=== PATIENT | female | born 1990 | race Two or more races ===

== ENCOUNTER 2020-01-07 17:37 | Emergency (ER) | payer OTHER, SELFPAY ==
[2020-01-07 17:51] VITALS: BP 127/62; PULSE 80; RESP 16; TEMP 37.4; O2SAT 99
--- NOTE | 2020-01-07 17:55 | ED.DENTAL ---
HPI - Dental/Oral General Chief complaint: Dental/Oral Stated complaint: right mouth pain Time Seen by Provider: 01/07/20 17:59 Source: patient and RN notes reviewed Mode of arrival: ambulatory Limitations: no limitations History of Present Illness HPI Narrative: This is a 29 years old female presents to the office for an evaluation of right cheek pain for a few day. Pain is getting worse especially when she tries to open her mouth to brush her teeth. Denies any pain for teeth when she eating or chewing or dental sensitivity to ice or hot drink. Denies facial trauma or injury. Denies sick contact. She has been taking ibuprofen for pain. Related Data Home Medications Medication Instructions Recorded Confirmed Controll 07/13/19 albuterol sulfate 07/13/19 Allergies Allergy/AdvReac Type Severity Reaction Status Date / Time No Known Allergies Allergy Verified 12/20/18 16:12 Review of Systems Review of Systems: Narrative: CONSTITUTIONAL: Denies fever or feeling ill. ENT: Denies rhinorrhea, congestion, sore throat, ear pain dental pain or drooling CARDIOVASCULAR: Denies chest pain RESPIRATORY: Denies cough GASTROINTESTINAL: Denies nausea, vomiting SKIN: Denies rash MUSCULOSKELETAL: Denies acute back pain NEUROLOGIC: Denies lightheaded PMFSH Past Medical History Medical History (Updated 01/07/20 @ 18:12 by KAYLYN Rick) Asthma Surgical History Surgical History (Updated 01/07/20 @ 17:57 by KAYLYN Rick) H/O section Hx of tonsillectomy Comments At time of signature, I agree with nursing past medical, surgical, social and family history. There is no relevant family history pertinent to the presenting complaint. Exam Narrative: Exam Narrative: GENERAL: This is a well-nourished, well-developed patient, in no apparent distress. Right side facial appears swollen without obvious erythema or lymphandenitis. EARS: External ears normal, auditory canals clear and without drainage, TMs normal without perforation. Hearing grossly intact. NOSE: External nose normal with no obvious nasal discharge, nares without redness, no rhinorrhea. THROAT: Mucous membranes moist, posterior pharynx clear; no obvious lesions. NECK: Neck supple, non-tender without lymphadenopathy, masses or thyromegaly. CARDIOVASCULAR: Regular rate and rhythm without murmurs, gallops, or rubs. RESPIRATORY: Clear to auscultation. Breath sounds equal bilaterally. No wheezes, rales, or rhonchi. GASTROINTESTINAL: Abdomen soft, non-tender, nondistended. Bowel sounds are active. No guarding. NEURO: awake, alert, and oriented to person, place and time. There were no obvious focal neurologic abnormalities. Steady gait Veronica Coma Scale Eye Opening: Spontaneous 4 [place] Coma Scale Motor: Obeys Commands 6 Veronica Coma Scale Verbal: Oriented 5 Course Vital Signs Vital signs: Vital Signs Temperature 99.4 F 01/07/20 17:51 Pulse Rate 80 01/07/20 17:51 Respiratory Rate 16 01/07/20 17:51 Blood Pressure 127/62 01/07/20 17:51 Pulse Oximetry 99 01/07/20 17:51 Temperature 99.4 F 01/07/20 17:51 Pulse Rate 80 01/07/20 17:51 Respiratory Rate 16 01/07/20 17:51 Blood Pressure 127/62 01/07/20 17:51 Pulse Oximetry 99 01/07/20 17:51 MDM - Dental/Oral MDM Narrative Medical decision making narrative: Discharge instructions reviewed with patient, as well as provided in writing per nursing staff. The instructions also include specific and strict return/GO TO THE ER as well as f/u information. All questions have been answered, and the patient deny any further questions with discharge and discharge plan. Differential Diagnosis Differential diagnosis: Likely gingival abscess, dental caries, toothache, dental abscess, aphthous ulcer and other (siadenitis, lymphadenapthy) Medical Records Attestation: I reviewed the patient's medical records. Critical Care Time Critical Care Time Critical
== END 2020-01-07 18:15 | disposition home or self-care (01) ==
PROVIDERS: Emergency Provider Nurse Practitioner; PCP Physician Assistant
DX: K13.79 Other lesions of oral mucosa (principal); J45.909 Unspecified asthma, uncomplicated
CPT/HCPCS: 99211; G0463

== ENCOUNTER 2021-06-08 08:56 | Emergency (ER) | payer OTHER, SELFPAY ==
[2021-06-08 09:09] VITALS: BP 110/68; PULSE 97; RESP 16; TEMP 36.4; O2SAT 100
--- NOTE | 2021-06-08 09:23 | ED.BACK ---
HPI - Back Pain/Injury General Chief Complaint: Back Pain/Injury Stated Complaint: Lower back pain Source: patient and RN notes reviewed Limitations: no limitations History of Present Illness HPI Narrative: The overweight patient, who works sitting in a call center, presents with right low back pain. Patient states she has had a recurrence of first right, now mostly left low back pain that is mild, worse with motion, better at rest, unrelieved with Flexeril she had previously [and she is run out of it]. No injury, fever, mild?bladder symptoms, hematuria/frequency/urgency/dysuria, significant ra radiating pain [tho it does go down posterior right thigh well above knee]. Related Data Home Medications Medication Instructions Recorded Confirmed fluticasone propion-salmeterol 1 inh INHALATION Q12H 06/08/21 06/08/21 [Advair Diskus] norethindrone-e.estradiol-iron 1 tablet PO DAILY 06/08/21 06/08/21 [Emily 24 Fe] Allergies Allergy/AdvReac Type Severity Reaction Status Date / Time No Known Allergies Allergy Verified 06/08/21 09:15 Review of Systems Review of Systems: General/Constitutional: No weight loss,fever Eyes: N0: Redness,discharge Ears/Nose/Throat: No: Epistaxis,ear discharge Respiratory: Denies: Hemoptysis Gastrointestinal: No Vomiting, Bleeding-rectal Skin: No Lumps, eruption Neurologic: No Focal Weakness,Sz Hematologic: Denies: Petechiae/Purpura Psychiatric: No: Suicida ideationl All Other Systems: Reviewed and Negative PMFSH Past Medical History Medical History (Updated 06/08/21 @ 10:39 by Don Davis MD) Asthma Surgical History Surgical History (Updated 01/07/20 @ 17:57 by KAYLYN Rick) H/O section Hx of tonsillectomy Comments At time of signature, agree with nursing past medical, surgical, social and family history. There is no relevant family history pertinent to the presenting complaint Exam Narrative: General Appearance: Overweight/well nourished Mouth/Throat: Normal appearing, Normal lips,: Supple Respiratory: Airway patent Abdomen: Soft Musculoskeletal: Normal strength (no footdrop, 5/5 : EH L-FHL, gastroc-AT, no saddle weakness) Spine/Back: Paraspinal muscle tender (with mild decreased range of motion; @ right posterior superior iliac crest) Skin: Normal color Neurological: A&O x3, CN II-XII intact, Normal reflexes (symmetric, 2+ KJ, trace AJ) Psychiatric: Normal mood Course Vital Signs Vital signs: Vital Signs Temperature 97.6 F 06/08/21 09:09 Pulse Rate 97 06/08/21 09:09 Respiratory Rate 16 06/08/21 09:09 Blood Pressure 110/68 06/08/21 09:09 Pulse Oximetry 100 06/08/21 09:09 Temperature 97.6 F 06/08/21 09:09 Pulse Rate 97 06/08/21 09:09 Respiratory Rate 16 06/08/21 09:09 Blood Pressure 110/68 06/08/21 09:09 Pulse Oximetry 100 06/08/21 09:09 Discharge Plan Discharge Clinical Impression: Back pain Qualifiers: Back pain location: low back pain Chronicity: acute Back pain laterality: right Sciatica presence: without sciatica Qualified Code(s): M54.5 - Low back pain Patient Disposition: Home, Self-Care Condition: Stable Instructions: Lower Back Exercises (ED) Prescriptions: New prednisone 20 mg tablet 60 mg PO DAILY Qty: 15 RF: 0 cyclobenzaprine 10 mg tablet 10 mg PO HS PRN (Reason: muscle spasm) Qty: 20 RF: 2 tramadol 50 mg tablet 50 - 75 mg PO TID PRN (Reason: pain) Qty: 20 RF: 0 tramadol 50 mg tablet 50 - 75 mg PO TID PRN (Reason: pain) Qty: 25 RF: 0 No Action norethindrone-e.estradiol-iron [Emily 24 Fe] 1 mg-20 mcg (24)/75 mg (4) tablet 1 tablet PO DAILY RF: 0 fluticasone propion-salmeterol [Advair Diskus] 250-50 mcg/dose Blister With Device 1 inh INHALATION Q12H RF: 0 Follow-up/Referrals: Ambrosio,GEOFFREY Lemus [Primary Care Provider] - Stand Alone Forms: Work/School Release IP
== END 2021-06-08 09:39 | disposition home or self-care (01) ==
PROVIDERS: Emergency Provider Emergency Medicine; PCP Physician Assistant
DX: M54.5 Low back pain (principal); J45.909 Unspecified asthma, uncomplicated
CPT/HCPCS: 99213; G0463

== ENCOUNTER 2021-09-01 18:22 | Emergency (ER) | payer OTHER, MEDICAID, SELFPAY ==
[2021-09-01 18:42] VITALS: BP 126/62; PULSE 74; RESP 16; TEMP 37.1; O2SAT 100
--- NOTE | 2021-09-01 19:10 | ED.GENADULT ---
HPI - General Adult General Chief complaint: Upper Respiratory Infection Stated complaint: sob/cough/mucus/runny nose/stuffy Source: patient Mode of arrival: ambulatory Limitations: no limitations History of Present Illness HPI narrative: Patient is a 30-year-old female who presents to the [facility] via POV for evaluation of upper respiratory symptoms that have been present for 2 days. Additionally, she reports nasal congestion, rhinorrhea, itchy throat, productive cough, wheezing. She reports her sputum production is small in quantity and brown in color. Singulair, vitamin C, and vitamin D provides no relief. Nothing improves or worsen symptoms. Patient has a history of pneumonia. Last episode of pneumonia was 1 year ago. She denies known exposure to sick contacts. She is fully vaccinated against Covid although not pneumonia. Related Data Home Medications Medication Instructions Recorded Confirmed norethindrone-e.estradiol-iron 1 tablet PO DAILY 06/08/21 09/01/21 [Emily 24 Fe] Allergies Allergy/AdvReac Type Severity Reaction Status Date / Time No Known Allergies Allergy Verified 09/01/21 19:04 Review of Systems Review of Systems: Pertinent negatives: fever, sweats, chills, change in appetite, fatigue, skin color changes, headache, dizziness, lymphadenopathy, sinus problems, ear pain/drainage, chest pain, heart murmurs, heart palpitations, shortness of breath, cyanosis, hemoptysis, hoarseness, orthopnea, pleuritic pain, nausea, vomiting, diarrhea, and myalgias. PMFSH Past Medical History Medical History (Updated 09/01/21 @ 19:36 by KAYLYN Villatoro, ) Asthma Pneumonia Surgical History Surgical History H/O section Hx of tonsillectomy Comments I have reviewed and agree with the patient's past medical, surgical, social, and family hx as documented by the RN. There is no relevant family history pertinent to the presenting complaint. Exam Narrative: GENERAL: Well-appearing, well-nourished, and in no acute distress. HEAD: Normocephalic, atraumatic. No sinus tenderness or facial swelling appreciated. EYES: PERRLA and EOMI. No evidence of erythema, swelling, or drainage. ENT: Bilateral external ears and ear canals normal. Bilateral TMs are normal. No TM perforation. Nares clear, no rhinorrhea or epistaxis. Bilateral turbinates without erythema/ swelling. Mucous membranes moist and pink. Uvula is midline without erythema and swelling. No evidence of petechial rash, cobblestoning, lesions, ulcers, erythema, swelling, exudates, peritonsillar abscess, tenting, or drooling. Breath odor and voice normal. NECK: Supple. No Lymphadenopathy or nuchal rigidity appreciated. CHEST: Moderate wheezing and rhonchi throughout bilateral posterior lung oliveira. What no respiratory distress. No evidence of pleuritic cp upon examination. Moderate wet cough appreciated on examination. HEART: Regular rate and rhythm. No murmur, gallop, or rub heard. EXTREMITIES: Normal range of motion. No edema. SKIN: Warm, dry, no rash. NEURO: No focal deficits. Alert and oriented x3. Course Vital Signs Vital signs: Vital Signs Temperature 98.8 F 09/01/21 18:42 Pulse Rate 74 09/01/21 18:42 Respiratory Rate 16 09/01/21 18:42 Blood Pressure 126/62 09/01/21 18:42 Pulse Oximetry 100 09/01/21 18:42 Temperature 98.8 F 09/01/21 18:42 Pulse Rate 74 09/01/21 18:42 Respiratory Rate 16 09/01/21 18:42 Blood Pressure 126/62 09/01/21 18:42 Pulse Oximetry 100 09/01/21 18:42 Medical Decision Making Differential Diagnosis Differential Diagnosis: Allergic rhinitis, ABRS, acute viral sinusitis, strep pharyngitis, nasopharyngitis, bronchitis, pneumonia, AOM, otitis externa, viral URI, influenza, covid-19 Medical Records Medical records reviewed: Yes I reviewed the external patient's medical records. Vital Signs Vital Signs:
== END 2021-09-01 19:37 | disposition home or self-care (01) ==
PROVIDERS: Emergency Provider Nurse Practitioner Family; PCP Physician Assistant
DX: R05.9 Cough, unspecified (principal); J45.909 Unspecified asthma, uncomplicated
CPT/HCPCS: 99213; G0463

== ENCOUNTER 2022-01-27 19:24 | Emergency (ER) | payer OTHER, MEDICAID, SELFPAY ==
[2022-01-27 19:30] VITALS: BP 130/63; PULSE 95; RESP 18; TEMP 37.2; O2SAT 98
--- NOTE | 2022-01-27 19:57 | ED.BACK ---
HPI - Back Pain/Injury General Chief Complaint: Back Pain/Injury Stated Complaint: hip/back pain Time Seen by Provider: 01/27/22 19:45 Source: patient Mode of arrival: ambulatory Limitations: no limitations History of Present Illness HPI Narrative: 31-year-old female presented for complaint of left hip and low back pain worsening over the past 3 days. She endorses a history of sciatica and states it feels similar with additional low back pain. Denies known injury. She has been taking cyclobenzaprine at night but is requesting something for during the day. She also endorses a history of asthma and has been wheezing more lately and resting refill on her albuterol inhaler. Denies numbness, tingling, weakness, loss of bowel or bladder, or saddle paresthesia. Related Data Home Medications Medication Instructions Recorded Confirmed norethindrone-e.estradiol-iron 1 tablet PO DAILY 06/08/21 09/01/21 [Emily 24 Fe] Allergies Allergy/AdvReac Type Severity Reaction Status Date / Time No Known Allergies Allergy Verified 09/01/21 19:04 Review of Systems Review of Systems: CONSTITUTIONAL: Denies body aches, fever, chills EYES: Denies visual changes ENT: Denies rhinorrhea, congestion CARDIOVASCULAR: Denies chest pain, palpitations, or edema. RESPIRATORY: Denies cough or dyspnea. GASTROINTESTINAL: Denies abdominal pain, nausea, vomiting, or diarrhea. SKIN: Denies rash, itching, or wounds. MUSCULOSKELETAL: Reports back pain and left hip pain. NEUROLOGIC: Denies headache, numbness, tingling, or weakness. PSYCH: Denies depression or anxiety. All systems reviewed & are unremarkable except as noted in HPI and below PMFSH Past Medical History Medical History (Updated 01/27/22 @ 19:58 by Carrol Lacy APRN) Asthma Pneumonia Surgical History Surgical History H/O section Hx of tonsillectomy Comments At time of signature, I have reviewed and agree with nursing past medical, surgical, social and family history unless otherwise noted. Please see nursing chart for further information. There is no relevant family history pertinent to the presenting complaint Exam Narrative: GENERAL: Appears in pain, no acute distress. HEAD: Normocephalic, atraumatic. EYES: conjunctivae clear NECK: Supple. CHEST: Speaks in full sentences. No respiratory distress. HEART: Regular rate and rhythm. Normal and equal peripheral pulses. EXTREMITIES: Bilateral lower extremities has normal strength and sensation, normal range of motion. Left hip/left lower back nontender with palpation no bruising or lesions; pulses palpable and equal bilaterally, skin warm, dry, pink. Capillary refill less than 3 seconds. SKIN: Warm, dry, no rash. NEURO: Alert and oriented x3. PSYCH: Normal mood and affect Course Course Emergency Course: Patient is aware of diagnosis, understands and agrees to treatment plan. Anticipatory guidance given. Patient agrees to follow-up as directed and is aware of reasons to seek care at the emergency department. Portions of this record may have been created with voice recognition software Level of Care: Express Care Visit Vital Signs Vital signs: Vital Signs Temperature 98.9 F 01/27/22 19:30 Pulse Rate 95 01/27/22 19:30 Respiratory Rate 18 01/27/22 19:30 Blood Pressure 130/63 01/27/22 19:30 Pulse Oximetry 98 01/27/22 19:30 Temperature 98.9 F 01/27/22 19:30 Pulse Rate 95 01/27/22 19:30 Respiratory Rate 18 01/27/22 19:30 Blood Pressure 130/63 01/27/22 19:30 Pulse Oximetry 98 01/27/22 19:30 Reviewed MDM - Back Pain/Injury Differential Diagnosis Differential diagnosis: Likely lumbar radiculopathy, sciatica and strain of lumbar region Discharge Plan Discharge Clinical Impression: Lumbar radiculopathy Patient Disposition: Home, Self-Care Condition: Stable Instructions: Antibiotic Form, Sciatica (ED),
== END 2022-01-27 20:03 | disposition home or self-care (01) ==
PROVIDERS: Emergency Provider Nurse Practitioner Family; PCP Physician Assistant
DX: M54.16 Radiculopathy, lumbar region (principal); J45.909 Unspecified asthma, uncomplicated
CPT/HCPCS: 99213; G0463

== ENCOUNTER 2022-06-29 10:37 | Emergency (ER) | payer OTHER, MEDICAID, SELFPAY ==
[2022-06-29 10:56] VITALS: BP 107/92; PULSE 97; RESP 18; TEMP 36.4; O2SAT 97
--- NOTE | 2022-06-29 11:51 | ED.URI ---
HPI - URI/Sore Throat General Chief Complaint: Upper Respiratory Infection Stated Complaint: uri Time Seen by Provider: 06/29/22 11:40 Source: patient, RN notes reviewed and old records reviewed Mode of arrival: ambulatory Limitations: no limitations History of Present Illness HPI Narrative: 31-year-old female who presents to [facility] with complaints of 2-day history of increased wheezing with some shortness of breath, has been using her nebulizer and her Ventolin denies any fevers chills or sweats or any body aches. Patient admits to some sinus congestion and drainage has not been taking any daily antihistamines. Patient states she was on Singulair about a month ago but has not had any for about a month. Patient states she did use her nebulizer last night and did use her inhaler this morning. Patient states she did cough up some yellowish looking mucus once this morning. Patient reports that she has had COVID vaccinations but no flu shot. MD elicited complaint: cough and sore throat Pertinent past history: asthma Onset (ago): day(s) (2) Treatments prior to arrival: other (inhalers and nebs) Related Data Home Medications Medication Instructions Recorded Confirmed albuterol sulfate 2.5 mg/3 mL 2.5 mg inhalation Q4H PRN sob 06/29/22 06/29/22 (0.083 %) solution for nebulization albuterol sulfate 90 mcg/actuation 2 puff inhalation QID PRN sob 06/29/22 06/29/22 aerosol inhaler (Ventolin HFA) fluticasone 500 mcg-salmeterol 50 2 inh inhalation DAILY 06/29/22 06/29/22 mcg/dose blistr powdr for inhalation (Advair Diskus) Allergies Allergy/AdvReac Type Severity Reaction Status Date / Time No Known Allergies Allergy Verified 06/29/22 11:11 Review of Systems Review of Systems: CONSTITUTIONAL: Denies malaise, chills, sweats, or fever. EYES: Denies visual changes, redness, or discharge. ENT: Reports rhinorrhea, congestion,no sinus pain, otalgia or sore throat. CARDIOVASCULAR: Denies chest pain, palpitations, or edema. RESPIRATORY: Reports cough.? Denies dyspnea.reports wheezing GASTROINTESTINAL: Denies abdominal pain, nausea, vomiting, diarrhea SKIN: Denies rash or itching. MUSCULOSKELETAL: Denies myalgia. NEUROLOGIC: Denies headache. All systems reviewed & are unremarkable except as noted in HPI and below PMFSH Past Medical History Medical History (Updated 07/01/22 @ 07:22 by Laisha Cortez NP) Asthma Bronchitis Pneumonia Surgical History Surgical History (Updated 07/01/22 @ 07:22 by Laisha Cortez NP) H/O section History of placement of ear tubes Hx of tonsillectomy Social History Social History (Updated 07/01/22 @ 07:21 by Laisha Cortez NP) Smoking status: Never smoker Alcohol intake: current Alcohol use details: social Substance use type: does not use Living arrangements: with family Gender identity (if verbalized by the patient): Female Comments At time of signature, agree with nursing past medical, surgical, social and family history. There is no relevant family history pertinent to the presenting complaint Exam Narrative: GENERAL: Well-appearing, well-nourished, and in no acute distress. HEAD: Normocephalic EYES: PERRLA, conjunctivae clear ENT: Nares clear, turbinates edematous and erythematous, clear discharge. Mucous membranes moist. TM pearly ricks with dull light reflex bilaterally; no tragal tenderness. Oropharynx pink without lesions. Tonsils not present and without exudate, no drooling, no hoarseness, no trismus, uvula midline. NECK: Supple. No lymphadenopathy CHEST Scattered wheezes in upper lobes, breath sounds equal. No , rhonchi, rales, or stridor. No respiratory distress, speaks in full sentences.cough with SAO2 97% on room air HEART: Regular rate and rhythm. No murmur heard. SKIN: Warm, dry, no rash. NEURO: Alert and oriented x3. PSYCH: Normal mood and affect Course Course Emergency Course: Patient is
== END 2022-06-29 12:12 | disposition home or self-care (01) ==
PROVIDERS: Emergency Provider Registered Nurse; PCP Physician Assistant
DX: J45.901 Unspecified asthma with (acute) exacerbation (principal)
CPT/HCPCS: 99213; G0463

== ENCOUNTER 2022-10-24 13:23 | Emergency (ER) | payer MEDICAID, SELFPAY ==
--- NOTE | 2022-10-24 13:29 | ED.URI ---
HPI - URI/Sore Throat General Chief Complaint: Upper Respiratory Infection Stated Complaint: sob/wheezing Time Seen by Provider: 10/24/22 13:46 Source: patient and RN notes reviewed Mode of arrival: ambulatory Limitations: no limitations History of Present Illness HPI Narrative: 31-year-old female presents with concern for asthma exacerbation. She reports 1 week history of increased productive cough, wheezing. She reports she has been using her rescue inhaler approximately 10 times daily. She denies nasal congestion, rhinorrhea, fever, aches, chills, sweats. MD elicited complaint: cough Related Data Home Medications Medication Instructions Recorded Confirmed albuterol sulfate 2.5 mg/3 mL 2.5 mg inhalation Q4H PRN sob 06/29/22 10/24/22 (0.083 %) solution for nebulization albuterol sulfate 90 mcg/actuation 2 puff inhalation QID PRN sob 06/29/22 10/24/22 aerosol inhaler (Ventolin HFA) fluticasone 500 mcg-salmeterol 50 2 inh inhalation DAILY 06/29/22 10/24/22 mcg/dose blistr powdr for inhalation (Advair Diskus) montelukast 10 mg tablet 10 mg PO DAILY 10/24/22 10/24/22 norethindrone 1 mg-ethinyl 1 tablet PO DAILY 10/24/22 10/24/22 estradiol 20 mcg (24)-iron 75 mg (4) tablet (Emily 24 Fe) Allergies Allergy/AdvReac Type Severity Reaction Status Date / Time No Known Allergies Allergy Verified 10/24/22 13:33 Review of Systems Review of Systems: CONSTITUTIONAL: Denies malaise, chills, sweats, or fever. EYES: Denies visual changes, redness, or discharge. ENT: Denies rhinorrhea, congestion, sinus pain, otalgia and sore throat. CARDIOVASCULAR: Denies chest pain, palpitations, or edema. RESPIRATORY: Reports cough, wheezing, dyspnea. GASTROINTESTINAL: Denies abdominal pain, nausea, vomiting, diarrhea SKIN: Denies rash or itching. MUSCULOSKELETAL: Denies myalgia. NEUROLOGIC: Denies headache. All systems reviewed & are unremarkable except as noted in HPI and below PMFSH Past Medical History Medical History (Updated 10/24/22 @ 14:15 by Christel Mahajan NP) Asthma Bronchitis Pneumonia Surgical History Surgical History (Updated 07/01/22 @ 07:22 by Laisha Cortez NP) H/O section History of placement of ear tubes Hx of tonsillectomy Social History Social History (Updated 07/01/22 @ 07:21 by Laisha Cortez NP) Smoking status: Never smoker Alcohol intake: current Alcohol use details: social Substance use type: does not use Living arrangements: with family Gender identity (if verbalized by the patient): Female Comments At time of signature, agree with nursing past medical, surgical, social and family history. There is no relevant family history pertinent to the presenting complaint Exam Narrative: GENERAL: Well-appearing, well-nourished, and in no acute distress. HEAD: Normocephalic EYES: PERRLA, conjunctivae clear ENT: Nares clear. Mucous membranes moist. TM pearly ricks with sharp light reflex bilaterally; no tragal tenderness. Oropharynx not erythematous without lesions. Tonsils not enlarged and without exudate, no drooling, no hoarseness, no trismus, uvula midline. NECK: Supple. No lymphadenopathy CHEST: Scattered wheeze, otherwise Clear to auscultation, breath sounds equal. No rhonchi, rales, or stridor. No respiratory distress, speaks in full sentences. HEART: Regular rate and rhythm. No murmur heard. SKIN: Warm, dry, no rash. NEURO: Alert and oriented x3. PSYCH: Normal mood and affect Course Course Emergency Course: Discussed asthma control with patient, advised follow-up with her primary care provider for further evaluation action plan Patient is aware of diagnosis, understands and agrees to treatment plan. Anticipatory guidance given. Patient agrees to follow-up as directed and is aware of reasons to seek care at the emergency department. Portions of this record may have been created with voice recognition software Level of Care: Express Care Visit Vital S
[2022-10-24 13:33] VITALS: BP 129/51; PULSE 85; RESP 16; TEMP 36.7; O2SAT 95
[2022-10-24 13:36] VITALS: BP 129/51; PULSE 85; RESP 16; TEMP 36.7; O2SAT 95
== END 2022-10-24 14:03 | disposition home or self-care (01) ==
PROVIDERS: Emergency Provider Nurse Practitioner; PCP Physician Assistant
DX: J45.901 Unspecified asthma with (acute) exacerbation (principal); Z71.89 Other specified counseling
CPT/HCPCS: 99213; G0463

== ENCOUNTER 2023-06-22 19:15 | Emergency (ER) | payer OTHER, SELFPAY ==
[2023-06-22 19:23] VITALS: BP 123/60; PULSE 94; RESP 16; TEMP 36.5; O2SAT 95
--- NOTE | 2023-06-22 19:30 | ED.URI ---
HPI - URI/Sore Throat General Chief Complaint: Upper Respiratory Infection Stated Complaint: SOB/Cough Time Seen by Provider: 06/22/23 19:30 Source: patient Mode of arrival: ambulatory Limitations: no limitations History of Present Illness HPI Narrative: 32-year-old female presents with complaint of asthma exacerbation. Patient reports that she is out of her albuterol neb treatments and could not get an appointment with her primary care physician for 1 month. Reports approximately 1 month ago she was in the hospital with asthma exacerbation and they forgot to refill her nebs. Has been using her albuterol inhaler without relief of symptoms. Also requesting prednisone. Patient has audible wheezing. no respiratory distress. All systems reviewed and negative except as noted above. Related Data Home Medications Medication Instructions Recorded Confirmed albuterol sulfate 2.5 mg/3 mL 2.5 mg inhalation Q4H PRN sob 06/29/22 06/22/23 (0.083 %) solution for nebulization albuterol sulfate 90 mcg/actuation 2 puff inhalation QID PRN sob 06/29/22 06/22/23 aerosol inhaler (Ventolin HFA) fluticasone 500 mcg-salmeterol 50 2 inh inhalation DAILY 06/29/22 06/22/23 mcg/dose blistr powdr for inhalation (Advair Diskus) montelukast 10 mg tablet 10 mg PO DAILY 10/24/22 06/22/23 norethindrone 1 mg-ethinyl 1 tablet PO DAILY 10/24/22 06/22/23 estradiol 20 mcg (24)-iron 75 mg (4) tablet (Emily 24 Fe) Allergies Allergy/AdvReac Type Severity Reaction Status Date / Time No Known Allergies Allergy Verified 06/22/23 19:21 Review of Systems Review of Systems: CONSTITUTIONAL: Denies fever, chills, or sweats. EYES: Denies visual changes, redness, or discharge. ENT: Denies rhinorrhea, congestion, sore throat, or otalgia. CARDIOVASCULAR: Denies chest pain, palpitations, or edema. RESPIRATORY: Reports cough, shortness breath with exertion, wheezing. GASTROINTESTINAL: Denies abdominal pain, nausea, vomiting, or diarrhea. GENITOURINARY: Denies dysuria or hematuria. SKIN: Denies rash or itching. MUSCULOSKELETAL: Denies back pain, joint pain, or myalgia. NEUROLOGIC: Denies headache, numbness, or weakness. PSYCHIATRIC: Denies anxiety or depression. All other systems reviewed are negative, except as documented in HPI. [facility] Past Medical History Medical History (Updated 06/22/23 @ 20:04 by Syeda Arthur NP) Asthma Bronchitis Pneumonia Surgical History Surgical History (Updated 07/01/22 @ 07:22 by Laisha Cortez NP) H/O section History of placement of ear tubes Hx of tonsillectomy Social History Social History (Updated 07/01/22 @ 07:21 by Laisha Cortez NP) Smoking status: Never smoker Alcohol intake: current Alcohol use details: social Substance use type: does not use Living arrangements: with family Gender identity (if verbalized by the patient): Female Comments At time of signature, agree with nursing past medical, surgical, social and family history. There is no relevant family history pertinent to the presenting complaint. Exam Narrative: GENERAL: This is a well-nourished, well-developed patient, in no apparent distress. HEAD: normocephalic, atraumatic. EYES: PERRL. Sclera clear/white. Vision is grossly intact. EARS: External ears normal, auditory canals clear and without drainage, TMs normal without perforation. Hearing grossly intact. NOSE: External nose normal with no obvious nasal discharge, nares without redness, no rhinorrhea. THROAT: Mucous membranes moist, posterior pharynx clear. NECK: Neck supple, non-tender without lymphadenopathy, masses or thyromegaly. CARDIOVASCULAR: Regular rate and rhythm without murmurs, gallops, or rubs. RESPIRATORY: Coarse lung sounds throughout all lung olive[place] With mild expiratory wheezing at bases. no rales, or rhonchi. SKIN: warm, Dry, intact with no suspicious lesions or rash, good texture and turgor. NEURO: awake, alert
[2023-06-22] MEDS: IPRATROPIUM BR 0.02% INH SOLN 0.5 MG/2.5 ML VIAL INHALATION (19:39)
[2023-06-22] MEDS: ALBUTEROL SULFATE NEB 2.5 MG/3 ML INH INHALATION (19:39)
== END 2023-06-22 20:07 | disposition home or self-care (01) ==
PROVIDERS: Emergency Provider Nurse Practitioner Family; PCP Nurse Practitioner Family
DX: J45.901 Unspecified asthma with (acute) exacerbation (principal)
CPT/HCPCS: 94640; 99213; G0463

== ENCOUNTER 2024-06-17 18:30 | Emergency (ER) | payer SELFPAY ==
--- NOTE | 2024-06-17 18:36 | ED.URI ---
HPI - URI/Sore Throat General Chief Complaint: Asthma Stated Complaint: asthmatic,difficulty breathing,left Sciatic pain Time Seen by Provider: 06/17/24 18:36 Source: patient, RN notes reviewed and old records reviewed Mode of arrival: ambulatory Limitations: no limitations History of Present Illness HPI Narrative: Patient presents with complaints of wheezing. She reports that she began with symptoms about 1 week ago, but they got considerably worse last night. Patient has known history of asthma. She has been using albuterol inhaler more often than normal. She is wheezing upon arrival, able to speak in complete sentences without any difficulty. She is afebrile. Steroids and neb treatment immediately ordered Related Data Home Medications Medication Instructions Recorded Confirmed albuterol sulfate 2.5 mg/3 mL 2.5 mg inhalation Q4H PRN sob 06/29/22 06/22/23 (0.083 %) solution for nebulization albuterol sulfate 90 mcg/actuation 2 puff inhalation QID PRN sob 06/29/22 06/22/23 aerosol inhaler (Ventolin HFA) fluticasone 500 mcg-salmeterol 50 2 inh inhalation DAILY 06/29/22 06/22/23 mcg/dose blistr powdr for inhalation (Advair Diskus) montelukast 10 mg tablet 10 mg PO DAILY 10/24/22 06/22/23 norethindrone 1 mg-ethinyl 1 tablet PO DAILY 10/24/22 06/22/23 estradiol 20 mcg (24)-iron 75 mg (4) tablet (Emily 24 Fe) Allergies Allergy/AdvReac Type Severity Reaction Status Date / Time No Known Allergies Allergy Verified 06/22/23 19:21 Review of Systems Review of Systems: All systems reviewed & are unremarkable except as noted in HPI and below Constitutional: Constitutional: Reports no additional constitutional complaints ENT: Reports system reviewed and no additional complaints, except as documented Cardiovascular: Cardiovascular: Reports no additional cardiovascular complaints Respiratory: Respiratory: Reports no additional respiratory complaints, Reports cough, Reports dyspnea and Reports wheezing Gastrointestinal: Gastrointestinal: Reports no additional gastrointestinal complaints PMFSH Past Medical History Medical History Asthma Bronchitis Pneumonia Surgical History Surgical History H/O section History of placement of ear tubes Hx of tonsillectomy Social History Social History Smoking status: Never smoker Alcohol intake: current Alcohol use details: social Substance use type: does not use Living arrangements: with family Gender identity (if verbalized by the patient): Female Comments At the time of my signature, I reviewed and agree with the nursing past medical, surgical, social, and family history. There is no relevant family history pertinent to the patient complaint. Exam Const: General: cooperative, no acute distress, alert and awake Orientation/consciousness: oriented to person, oriented to place and oriented to time HENMT: Head: normal to inspection Mouth: Yes moist mucous membranes Resp: Effort & Inspection: normal respiratory effort and able to speak in complete sentences Auscultation: no crackles, no rales, no rhonchi and wheezes expiratory wheezes, inspiratory wheezes and throughout Cardio: Palpation: normal PMI Rate: regular rate Rhythm: regular rhythm Heart sounds: S1 normal heart sound present and S2 normal heart sound present Neuro: General: oriented to person, oriented to place and oriented to time Cranial nerves: Yes CN's II-XII intact bilaterally Psych: Appearance: grossly normal Thought process: Normal thought process present Insight: Good insight present (Psych) Judgement: Good judgement present (Psych) Course Course Level of Care: Express Care Visit Reevaluation(s) Reevaluation #1: Patient much improved after 1 nebulizer treatment. Steroids given. Pulse ox remain
[2024-06-17 18:42] VITALS: BP 145/75; PULSE 104; RESP 16; TEMP 36.2; O2SAT 93
[2024-06-17] MEDS: IPRATROPIUM 0.5 MG/ALBUTEROL SULFATE 2.5 MG AMPUL.NEB 3 ML INHALATION ×2 (18:49→19:12)
[2024-06-17] MEDS: predniSONE 20 MG TABLET 60 MG PO (18:49)
--- NOTE | 2024-06-17 19:16 | PC.NURSE ---
1900 pt tolerated first neb well. states improving. HR 106. RR 24 now, wheezing and work of breathing improving.
[2024-06-17 19:17] VITALS: PULSE 106; RESP 24; O2SAT 93
--- NOTE | 2024-06-17 19:32 | PC.NURSE ---
193 pt finished neb #2, states is feeling better. HR 116, RR 24. Sat 95
[2024-06-17 19:33] VITALS: BP 138/78; PULSE 116; RESP 24; O2SAT 95
--- NOTE | 2024-06-17 19:46 | PC.NURSE ---
1944 pt sat back down to 91 on RA. Pt c/o fatigue. RR 24. cough is productive clear mucous. pr is agreeing upon transfer to [facility]
[2024-06-17 19:55] VITALS: PULSE 116; RESP 24; O2SAT 92
== END 2024-06-17 20:14 | disposition short-term general hospital (02) ==
PROVIDERS: Emergency Provider Nurse Practitioner Family
DX: J45.901 Unspecified asthma with (acute) exacerbation (principal)
CPT/HCPCS: 94640; 99213; G0463; J7512

== ENCOUNTER 2024-11-25 19:22 | Emergency (ER) | payer OTHER, SELFPAY ==
[2024-11-25 19:29] VITALS: BP 113/59; PULSE 73; RESP 20; TEMP 36.5; O2SAT 100
--- NOTE | 2024-11-25 19:31 | ED.SKABFB ---
HPI - Skin/Abscess/Foreign Bdy General Stated complaint: [place] Removal Time Seen by Provider: 11/25/24 19:31 Source: patient Mode of arrival: ambulatory Limitations: no limitations History of Present Illness HPI narrative: 33-year-old female presents to have peggy removed from scalp laceration. Patient had peggy placed approximately 10 days ago. Patient fell and hit her head on a bathroom sink after getting out of shower. Was seen at [facility] ER after fall. All systems reviewed and negative except as noted above. Related Data Home Medications ?Medication ?Instructions ?Recorded ?Confirmed ?Last Taken ?Type albuterol sulfate 2.5 mg/3 mL 2.5 mg inhalation Q4H PRN sob 06/29/22 09/22/24 Unknown History (0.083 %) solution for nebulization albuterol sulfate 90 mcg/actuation 2 puff inhalation QID PRN sob 06/29/22 09/22/24 Unknown History aerosol inhaler (Ventolin HFA) fluticasone 500 mcg-salmeterol 50 2 inh inhalation DAILY 06/29/22 09/22/24 Unknown History mcg/dose blistr powdr for inhalation (Advair Diskus) montelukast 10 mg tablet 10 mg PO DAILY 10/24/22 09/22/24 Unknown History norethindrone 1 mg-ethinyl 1 tablet PO DAILY 10/24/22 09/22/24 Unknown History estradiol 20 mcg (24)-iron 75 mg (4) tablet (Emily 24 Fe) Allergies Allergy/AdvReac Type Severity Reaction Status Date / Time No Known Allergies Allergy Verified 11/25/24 19:38 Review of Systems Review of Systems: CONSTITUTIONAL: Denies fever, chills, or sweats. EYES: Denies visual changes, redness, or discharge. ENT: Denies rhinorrhea, congestion, sore throat, or otalgia. CARDIOVASCULAR: Denies chest pain, palpitations, or edema. RESPIRATORY: Denies cough or dyspnea. GASTROINTESTINAL: Denies abdominal pain, nausea, vomiting, or diarrhea. GENITOURINARY: Denies dysuria or hematuria. SKIN: Denies rash or itching. Patient here for staple removal MUSCULOSKELETAL: Denies back pain, joint pain, or myalgia. NEUROLOGIC: Denies headache, numbness, or weakness. PSYCHIATRIC: Denies anxiety or depression. All other systems reviewed are negative, except as documented in HPI. [facility] Past Medical History Medical History Bronchitis Pneumonia Asthma Surgical History Surgical History History of placement of ear tubes H/O section Hx of tonsillectomy Social History Social History Smoking status: Never smoker Alcohol intake: current Alcohol use details: social Substance use type: does not use Living arrangements: with family Gender identity (if verbalized by the patient): Female Comments At time of signature, agree with nursing past medical, surgical, social and family history. There is no relevant family history pertinent to the presenting complaint. Exam Narrative: GENERAL: This is a well-nourished, well-developed patient, in no apparent distress. HEAD: normocephalic, atraumatic. EYES: PERRL. Sclera clear/white. Vision is grossly intact. EARS: External ears normal NOSE: External nose normal NECK: Neck supple, non-tender without lymphadenopathy, masses or thyromegaly. CARDIOVASCULAR: Regular rate and rhythm without murmurs, gallops, or rubs. RESPIRATORY: Clear to auscultation. Breath sounds equal bilaterally. No wheezes, rales, or rhonchi. SKIN: warm, Dry, intact with no suspicious lesions or rash, good texture and turgor. healing laceration to occiput of the scalp with [address] no erythema, swelling or drainage. NEURO: awake, alert, and oriented to person, place and time. There were no obvious focal neurologic abnormalities. EXTREMITIES: No joint tenderness, effusion, or edema noted. No calf tenderness. Negative Homans sign bilaterally. BACK: Nontender without deformity. No CVA tenderness. Course Course Level of Care: Express Care Visit Vital Signs Vital signs: Vital Signs Temperature 36.5 C 11/25/24 19:29 Pulse Rate 73 11/25/24 19:29 Respiratory Rate 20 11/25/24 19:29 Blood Pressure 113/59 L 11/25/24 19:29 Pulse Oximetry 100 11/25/24 19:29 Oxygen Delivery Room Air 11/25/24 19:29 Temperature 36.5 C 11/25/24 19:29 Pulse Rate 73 11/25/24 19:29 Respiratory Rate 20 11/25/24 19:29 Blood Pressure 113/59 L 11/25/24 19:29 Pulse Oximetry 100 11/25/24 19:29 Oxygen Delivery Room Air 11/25/24 19:29 reviewed Procedures Other Procedure Procedure 1: Other Procedure: Five peggy removed from scalp wound using staple removal kit MDM - Skin/Abscess/Foreign Bdy MDM Narrative Medical decision making narrative: Please be advised this is a medical document. It is intended for [id number] communication. It is written in medical language and may contain unfamiliar abbreviations or verbiage. Medical documents are intended to carry relevant information, facts as evident, and the clinical opinion of the practitioner at the time of the encounter. This report may have been done utilizing a voice recognition system. Attempts have been made to correct errors. However, there may be uncorrected grammatical, spelling, and recognition errors present. The file time of this note does not necessarily represent the time of service. Discharge Plan Discharge Clinical Impression: Encounter for removal of peggy Patient Disposition: Home, Self-Care Condition: Stable Instructions: General Patient Instructions Additional Instructions: Five peggy were removed from your scalp wound today. Wound is healing well. There were no signs of infection. Patient Language: Vincentian Prescriptions: No Action montelukast 10 mg tablet 10 mg PO DAILY Emily 24 Fe 1 mg-20 mcg (24)/75 mg (4) tablet 1 tablet PO DAILY albuterol sulfate 2.5 mg /3 mL (0.083 %) solution for nebulization 2.5 mg inhalation Q4H PRN (Reason: shortness of breath or wheezing) Qty: 75 0RF albuterol sulfate 90 mcg/actuation HFA aerosol inhaler 2 puff INHALATION QID PRN (Reason: shortness of breath or wheezing) Qty: 8.5 0RF albuterol sulfate 2.5 mg /3 mL (0.083 %) Solution For Nebulization 2.5 mg INHALATION Q4H PRN (Reason: sob) fluticasone propion-salmeterol [Advair Diskus] 500-50 mcg/dose blister with device 2 inh INHALATION DAILY albuterol sulfate [Ventolin HFA] 90 mcg/actuation Hfa Aerosol Inhaler 2 puff INHALATION QID MDD see RX PRN (Reason: sob) albuterol sulfate 2.5 mg /3 mL (0.083 %) solution for nebulization 2.5 mg inhalation Q6H PRN (Reason: shortness of breath or wheezing) Qty: 75 0RF Follow-up/Referrals: PHYSICIAN,PROTOHISTORIAN [Primary Care Provider] - Time of Disposition: 19:37
== END 2024-11-25 19:50 | disposition home or self-care (01) ==
PROVIDERS: Emergency Provider Nurse Practitioner Family
DX: S01.01XD Laceration without foreign body of scalp, subsequent encounter (principal); W19.XXXD Unspecified fall, subsequent encounter; J45.909 Unspecified asthma, uncomplicated
CPT/HCPCS: 99211; G0463

== ENCOUNTER 2024-12-06 19:18 | Emergency (ER) | payer OTHER, SELFPAY ==
--- NOTE | 2024-12-06 19:24 | ED_ITS ---
HPI - Dental/Oral General Chief complaint: Dental/Oral Stated complaint: dental pain Time Seen by Provider: 12/06/24 19:41 Source: patient, RN notes reviewed and old records reviewed Mode of arrival: ambulatory Limitations: no limitations History of Present Illness HPI Narrative: 34-year-old female presents to the [facility] with concerns of soreness to the left lower molar area. Thinks that she has a hole in her filling. States it has been going on approximately 3 days. Has been rinsing her mouth with hydrogen peroxide using and thus all. Requesting a dental provider Related Data Home Medications ?Medication ?Instructions ?Recorded ?Confirmed ?Last Taken ?Type fluticasone 500 mcg-salmeterol 50 2 inh inhalation DAILY 06/29/22 12/06/24 Unknown History mcg/dose blistr powdr for inhalation (Advair Diskus) norethindrone 1 mg-ethinyl 1 tablet PO DAILY 10/24/22 12/06/24 Unknown History estradiol 20 mcg (24)-iron 75 mg (4) tablet (Emily 24 Fe) Allergies Allergy/AdvReac Type Severity Reaction Status Date / Time No Known Allergies Allergy Verified 12/06/24 19:28 Review of Systems Review of Systems: All systems reviewed & are unremarkable except as noted in HPI and below Constitutional: Constitutional: Reports no additional constitutional complaints ENT: Reports as per HPI Cardiovascular: Cardiovascular: Reports no additional cardiovascular complaints, Denies chest pain and Denies dyspnea Respiratory: Respiratory: Reports no additional respiratory complaints, Denies chest congestion, Denies cough and Denies dyspnea Musculoskeletal: Musculoskeletal: Reports no additional musculoskeletal complaints Integumentary/Breasts: Skin/Breast: Reports system reviewed and no additional complaints, except as docu PMFSH Past Medical History Medical History Bronchitis Pneumonia Asthma Surgical History Surgical History History of placement of ear tubes H/O section Hx of tonsillectomy Social History Social History Smoking status: Never smoker Alcohol intake: current Alcohol use details: social Substance use type: does not use Living arrangements: with family Gender identity (if verbalized by the patient): Female Comments At the time of my signature, I reviewed and agree with the nursing past medical, surgical, social, and family history. There is no relevant family history pertinent to the patient complaint. Exam Const: General: cooperative, healthy appearing, comfortable, no acute distress, well developed, alert and well nourished Nutritional Appearance: well nourished Orientation/consciousness: patient oriented x3 Limitations: no limitations HENMT: Head: normal to inspection Ears: hearing grossly normal bilaterally, external ears normal, TM's normal bilaterally, EAC's normal, mastoids normal and no periauricular adenopathy Mouth: Yes Normal oral and palatal mucosa present, Yes lip normal, Yes tongue normal and Yes moist mucous membranes Teeth and gingiva: gingiva normal and fair dentition Throat: posterior oropharynx normal, uvula midline and no uvular edema Eyes: General: appearance normal, both eyes and all related structures Alignment and Position: alignment normal Neck: Neck: normal visual inspection, full ROM, no lymphadenopathy and no meningeal signs Chest: Chest palpation & inspection: normal inspection of the chest Resp: Effort & Inspection: normal respiratory effort and able to speak in complete sentences Cardio: Rate: regular rate Skin: General skin exam: normal color and no rashes or lesions noted Neuro: General: patient oriented x3, gait normal, moves all extremities and no meningeal signs Cognition (Neuro): normal cognition Speech: normal speech Gait exam (Neuro): Normal gait present Extrem: General: normal to inspection, full ROM, capillary refill normal and normal gait Psych: Appearance: grossly normal and well kempt Mental Status: mental status grossly normal Speech and movement: Normal speech and movement present and Clear speech present Affect: normal affect Attitude: cooperative Course Course Level of Care: Express Care Visit Vital Signs Vital signs: Vital Signs Temperature 97.7 F 12/06/24 19:25 Pulse Rate 89 12/06/24 19:25 Respiratory Rate 16 12/06/24 19:25 Blood Pressure 127/62 12/06/24 19:25 Pulse Oximetry 97 12/06/24 19:25 Temperature 97.7 F 12/06/24 19:25 Pulse Rate 89 12/06/24 19:25 Respiratory Rate 16 12/06/24 19:25 Blood Pressure 127/62 12/06/24 19:25 Pulse Oximetry 97 03/27/25 19:25 Reviewed MDM - Dental/Oral MDM Narrative Medical decision making narrative: Patient is sitting comfortably in exam room. Nontoxic, vitals stable. Patient in no acute distress. Patient is concern for an infection in her tooth. Requesting a prescription for ibuprofen as well as an antibiotic. List of dental providers given. Patient with fair dentition, multiple fillings noted. Patient appropriate for outpatient treatment and follow-up Discharge instructions reviewed with patient, as well as provided in writing per nursing staff. The instructions also include specific and strict return/GO TO THE ER as well as f/u information. All questions have been answered, and the patient deny any further questions with discharge and discharge plan. Some parts of this dictation were generated by voice recognition software and may contain typographical and/or grammatical inaccuracies. Differential Diagnosis Differential diagnosis: Likely gingival abscess, dental caries, toothache and dental abscess Critical Care Time Critical Care Time Critical Care Time: No Discharge Plan Discharge Clinical Impression: Toothache Patient Disposition: Home, Self-Care Condition: Stable Instructions: Antibiotic Form, Toothache (ED) Additional Instructions: Finish the entire course of antibiotics & use mouthwash. After every time you eat be sure to use salt water rinses. Apply ice to face to help with pain. Take Tylenol alternating with Motrin as needed for pain. You can alternate every 4 hours You need to follow-up with a dental provider as soon as possible for further evaluation and treatment. A list of dental providers has been given to you Follow up with a Primary Care Provider (PCP) about medical needs. A PCP can help keep you healthy by preventive medicine and screening. Go to the ER for New or worsening symptoms. Patient Language: Serbian Prescriptions: New penicillin V potassium 500 mg tablet 500 mg PO QID 7 Days Qty: 28 0RF ibuprofen 800 mg tablet 800 mg PO TID PRN (Reason: pain) Qty: 20 0RF No Action Emily 24 Fe 1 mg-20 mcg (24)/75 mg (4) tablet 1 tablet PO DAILY fluticasone propion-salmeterol [Advair Diskus] 500-50 mcg/dose blister with device 2 inh INHALATION DAILY Follow-up/Referrals: PHYSICIAN,VASCULAR TECHNOLOGIST SONOGRAPHER [Primary Care Provider] - Stand Alone Forms: Work/School Release IP Time of Disposition: 19:46
[2024-12-06 19:25] VITALS: BP 127/62; PULSE 89; RESP 16; TEMP 36.5; O2SAT 97
== END 2024-12-06 19:49 | disposition home or self-care (01) ==
PROVIDERS: Emergency Provider Nurse Practitioner
DX: K08.89 Other specified disorders of teeth and supporting structures (principal); J45.909 Unspecified asthma, uncomplicated
CPT/HCPCS: 99213; G0463